=== PATIENT | female | born 1950 | race Caucasian/White ===

== ENCOUNTER 2021-05-09 09:09 | Outpatient (CLI) | payer OTHER | END 2021-05-09 09:18 | disposition home or self-care (01) | LOC: RX STUDY 09:09 | PROVIDERS: ATTEND Surgery | DX: K21.9 Gastro-esophageal reflux disease without esophagitis (principal); C16.5 Malignant neoplasm of lesser curvature of stomach, unspecified; Z96.643 Presence of artificial hip joint, bilateral ==